=== PATIENT | female | born 1925 | race Caucasian/White ===

== ENCOUNTER 2016-10-29 15:22 | Emergency (ER) | payer OTHER, BC ==
[2016-10-29 15:28] VITALS: BP 141/75; PULSE 74; TEMP 97.9; BMI 32.2
[2016-10-29] MEDS ORDERED: ACETAMINOPHEN 325 MG TABLET (FP) PO ONE (15:47)
[2016-10-29] MEDS ORDERED: CEPHALEXIN MONOHYDRATE 500 MG CAPSULE (UD) PO ONE ×2 (15:47→15:55)
[2016-10-29] MEDS ORDERED: ACETAMINOPHEN 325 MG TABLET (FP) ONE (15:52)
[2016-10-29] MEDS ORDERED: CEPHALEXIN MONOHYDRATE 500 MG CAPSULE (UD) ONE (15:52)
--- NOTE | 2016-10-29 15:52 | PDOC ---
History of Present Illness - General Chief Complaint: Wound Stated Complaint: LT TOE PAIN Time Seen by Provider: 10/29/16 15:32 History Source: Patient - History of Present Illness Occurred: reports: other Lower Extremity Pain Location: left: foot Past History - Past Medical History Allergies/Adverse Reactions: Allergies Allergy/AdvReac Type Severity Reaction Status Date / Time No Known Allergies Allergy Verified 10/29/16 15:23 Home Medications: Ambulatory Orders Cholecalciferol (Vitamin D3) [Vitamin D -] 50,000 unit PO WEEKLY 04/16/16 Cyanocobalamin (Vitamin B-12) [B-12] 1,000 mcg PO DAILY 04/16/16 Lorazepam 1 mg PO BID PRN 04/16/16 Losartan Potassium 50 mg PO DAILY 04/16/16 Potassium Chloride [Klor-Con M20] 20 meq PO TID 04/16/16 Simvastatin 10 mg PO DAILY 04/16/16 Verapamil HCl [Verapamil Sr] 120 mg PO DAILY 04/16/16 Warfarin Sodium [Coumadin] 3 mg PO DAILY #30 tablet 04/19/16 Hydrochlorothiazide [Hctz -] 25 mg PO DAILY 04/28/16 Cephalexin [Keflex] 500 mg PO Q6H #26 capsule 10/29/16 Cancer: Yes (skin) HTN: Yes Hypercholesterolemia: Yes Psychiatric Problems: Yes (depression/ anxiety) - Surgical History Appendectomy: Yes Cholecystectomy: Yes - Immunization History Immunization Up to Date: Yes - Psycho/Social/Smoking Cessation Hx Anxiety: No Suicidal Ideation: No Smoking History: Never smoked Have you smoked in the past 12 months: No Information on smoking cessation initiated: No Hx Alcohol Use: No Drug/Substance Use Hx: No Substance Use Type: None Review of Systems - Review of Systems Constitutional: No: Fever Integumentary: Yes: Other (wound) *Physical Exam - Vital Signs Last Vital Signs Temp Pulse Resp BP Pulse Ox 97.9 F 74 18 141/75 100 10/29/16 15:25 10/29/16 15:25 10/29/16 15:25 10/29/16 15:25 10/29/16 15:25 - Physical Exam General Appearance: Yes: Appropriately Dressed. No: Apparent Distress HEENT: positive: Normal Voice Neck: positive: Supple Respiratory/Chest: negative: Respiratory Distress Extremity: positive: Other (paronychia to L great toe, draining minimal pus, no large induration to I&D) Integumentary: positive: Dry, Warm Neurologic: positive: Fully Oriented, Alert, Normal Mood/Affect Medical Decision Making - Medical Decision Making 10/29/16 15:47 89 yo F, h/o skin cancer s/p resection, here with pain to L great toe x several days. Denies injury, f/c. See exam Great toe paronychia Already draining No induration to drain -local wound care -dc w/ abd -wound check in 2 days 10/29/16 15:56 *DC/Admit/Observation/Transfer Diagnosis at time of Disposition: Paronychia Qualifiers: Laterality: left Qualified Code(s): L03.012 - Cellulitis of left finger - Discharge Dispostion Disposition: HOME Condition at time of disposition: Good - Prescriptions Prescriptions: Cephalexin [Keflex] 500 mg PO Q6H #26 capsule - Patient Instructions Printed Discharge Instructions: DI for Paronychia Additional Instructions: Keep wound dry for the next 2 days Keep wound covered until it heals Take antibiotics as prescribed Return to ED in 2 days for wound check Return immediately for worsening of symptoms
== END 2016-10-29 16:09 ==
LOC: JERFT 15:22
DX: L03.032 Cellulitis of left toe (principal); I10 Essential (primary) hypertension; E78.00 Pure hypercholesterolemia, unspecified; Z85.828 Personal history of other malignant neoplasm of skin
CPT/HCPCS: 99281-25

== ENCOUNTER 2016-11-01 14:33 | Emergency (ER) | payer OTHER, BC ==
[2016-11-01 14:41] VITALS: BP 135/53; PULSE 68; TEMP 98; BMI 32.2
--- NOTE | 2016-11-01 15:23 | PDOC ---
History of Present Illness - General Chief Complaint: Revisit,Wound Recheck Stated Complaint: FOLLOW-UP Time Seen by Provider: 11/01/16 14:45 History Source: Patient - History of Present Illness Occurred: reports: other Past History - Past Medical History Allergies/Adverse Reactions: Allergies Allergy/AdvReac Type Severity Reaction Status Date / Time No Known Allergies Allergy Verified 11/01/16 14:41 Home Medications: Ambulatory Orders Cholecalciferol (Vitamin D3) [Vitamin D -] 50,000 unit PO WEEKLY 04/16/16 Cyanocobalamin (Vitamin B-12) [B-12] 1,000 mcg PO DAILY 04/16/16 Lorazepam 1 mg PO BID PRN 04/16/16 Losartan Potassium 50 mg PO DAILY 04/16/16 Potassium Chloride [Klor-Con M20] 20 meq PO TID 04/16/16 Simvastatin 10 mg PO DAILY 04/16/16 Verapamil HCl [Verapamil Sr] 120 mg PO DAILY 04/16/16 Warfarin Sodium [Coumadin] 3 mg PO DAILY #30 tablet 04/19/16 Hydrochlorothiazide [Hctz -] 25 mg PO DAILY 04/28/16 Cephalexin [Keflex] 500 mg PO Q6H #26 capsule 10/29/16 Cancer: Yes (skin) HTN: Yes Hypercholesterolemia: Yes Psychiatric Problems: Yes (depression/ anxiety) - Surgical History Abdominal Surgery: No Appendectomy: Yes Cholecystectomy: Yes - Immunization History Immunization Up to Date: Yes - Psycho/Social/Smoking Cessation Hx Anxiety: No Suicidal Ideation: No Smoking History: Never smoked Have you smoked in the past 12 months: No Information on smoking cessation initiated: No Hx Alcohol Use: Yes (at dinner) Drug/Substance Use Hx: No Substance Use Type: None *Physical Exam - Vital Signs Last Vital Signs Temp Pulse Resp BP Pulse Ox 98 F 68 14 135/53 98 11/01/16 14:35 11/01/16 14:35 11/01/16 14:35 11/01/16 14:35 11/01/16 14:35
--- NOTE | 2016-11-01 15:27 | PDOC ---
Suture Removal/Wound Check HPI - History of Present Illness Chief Complaint: Revisit,Wound Recheck Stated Complaint: FOLLOW-UP Time Seen by Provider: 11/01/16 14:45 History Source: Yes: Patient Treated at: [facility] Date of Last ED visit: 10/29/16 - Previous ED Treatment Type of procedure performed on last visit: Yes: Other (draining paronychia) Tetanus Immunization: Yes: Up to Date Past History - Past Medical History Allergies/Adverse Reactions: Allergies No Known Allergies Allergy (Verified 11/01/16 14:41) Home Medications: Ambulatory Orders Cholecalciferol (Vitamin D3) [Vitamin D -] 50,000 unit PO WEEKLY 04/16/16 Cyanocobalamin (Vitamin B-12) [B-12] 1,000 mcg PO DAILY 04/16/16 Lorazepam 1 mg PO BID PRN 04/16/16 Losartan Potassium 50 mg PO DAILY 04/16/16 Potassium Chloride [Klor-Con M20] 20 meq PO TID 04/16/16 Simvastatin 10 mg PO DAILY 04/16/16 Verapamil HCl [Verapamil Sr] 120 mg PO DAILY 04/16/16 Warfarin Sodium [Coumadin] 3 mg PO DAILY #30 tablet 04/19/16 Hydrochlorothiazide [Hctz -] 25 mg PO DAILY 04/28/16 Cephalexin [Keflex] 500 mg PO Q6H #26 capsule 10/29/16 - Immunization History Immunizations Up to Date: Yes - Social History Smoking Status: Never smoked Suture Removal/Wound Check PE - Physical Exam Laceration/Wound Check Symptoms: denies: Pain, Fever, Chills Current Severity Level: None Location of Laceration/Wound: left: Toe (paronychia to L great toe w/ minimal bloody drainage, no pus, no induration, no sig ttp, pedal pulses intact) *Review of Systems - Review of Systems Constitutional: No: Chills, Fever Medical Decision Making - Medical Decision Making 11/01/16 15:24 11/01/16 15:16 89 yo F, h/o skin cancer, status post resection remotely, here for wound check of great toe paronychia. Patient was seen by myself 2 days ago with paronychia to left great toe that was draining pus and blood. No need for I&D on last visit. Currently on clinda, no wound cx sent. States pain has significantly improved. Seen at home by her PMD today who voiced concern to pt that wound may need I&D as per pt See exam Healing paronychia to great toe On abx Minimal bloody drainage w/ no e/o reaccumulation, no need for I&D today Local wound care -Dc to complete abx and return for worsening of symptoms -Will attempt to contact PMD (Dr Ilda Urena at [phone]) w/ impression 11/01/16 15:24 11/01/16 15:25 *DC/Admit/Observation/Transfer Diagnosis at time of Disposition: Wound check, abscess - Discharge Dispostion Disposition: HOME Condition at time of disposition: Good - Patient Instructions Additional Instructions: You did not need an incision and drainage of your abscess, as abscess is already draining, mostly blood now and there is no evidence of reaccumulation of pus on exam. Please continue to apply bacitracin and keep wound covered until completely heals. Also complete the keflex. Return to ED only if symptoms are worsening and continue to follow up with your PMD
== END 2016-11-01 15:33 | disposition home or self-care (01) ==
LOC: JERFT 14:33
DX: Z09 Encounter for follow-up examination after completed treatment for conditions other than malignant neoplasm (principal)
CPT/HCPCS: 99281-25